=== PATIENT | male | born 1995 | race Caucasian/White ===

== ENCOUNTER 2019-02-18 16:44 | Emergency (ER) | payer BC, MEDICAID, SELFPAY ==
[2019-02-18 16:48] VITALS: BP 146/101; PULSE 98; RESP 18; TEMP 36.6; O2SAT 98; BMI 19.5
--- NOTE | 2019-02-18 17:01 | EKG12_ITS ---
Test Reason : CP Blood Pressure : / mmHG Vent. Rate : 085 BPM Atrial Rate : 085 BPM P-R Int : 134 ms QRS Dur : 088 ms QT Int : 348 ms P-R-T Axes : 003 008 026 degrees QTc Int : 414 ms Normal sinus rhythm Normal ECG Confirmed by ELMER GRANT ([id number]), non linear editor MADELEINE BOURNE ([id number]) on 02/20/2019 1:47:26 PM Referred By: NOAM Confirmed By:ELMER GRANT
--- NOTE | 2019-02-18 17:07 | NURSING ---
NO OLD EKGS
--- NOTE | 2019-02-18 17:13 | ED.DCSUM_ITS ---
- ER Visit Summary Date of Service: 02/18/19 Chief Complaint: Fevers, chills History of Present Illness: The patient is a 23 M presents to the emergency department from urgent care due to concern for Lyme disease. Patient states he was bit by a tick on the . He states that about 9 days ago, he began to have some vague infectious symptoms. He states had a mild cough and mild sore throat. He also been having some generalized malaise and night sweats. Went to urgent care today. Due to this concern he was sent in for further evaluation. He has no history of immunosuppression. He is not on daily medication. Physical Examination: Vital signs reviewed General: Well-nourished, well-developed Head: Normocephalic, atraumatic Eyes: Pupils equal and reactive, extraocular muscles intact Neck, supple, no lymphadenopathy Heart: Regular rate and rhythm Respiratory: No distress, clear bilaterally Abdomen: Soft, nontender, nondistended, no peritoneal signs Back: Nontender Extremities: Nontender, no edema, no cords Skin: Normal color no rash Neuro: Alert and oriented, no focal or lateralizing deficits Test Results: [] Emergency Department Course and Treatment: The patient has no erythema migrans. He has had some vague infectious type symptoms. Metabolic work-up was pursued. EKG was obtained. There is no evidence of cardiac dysrhythmia or AV dissociation her chest x-ray was unremarkable. Labs were unremarkable. The Lyme disease is a send off, and given his symptoms, I am going to treat him at least until this is negative. He does have follow-up with regular primary care. The patient will be started on doxycycline. Again, he does not appear to be systemically ill, has an unremarkable work-up, and normal vital signs. I do feel that he is safe for outpatient therapy. Treatment Plan: [] Disposition: Discharge Impression: 1. Suspected exposure to Lyme disease This note was generated with [employer]ing[employer] dictation software. It may contain incorrect words, spelling, and punctuation that were not noted in review of the chart prior to signing ED Disposition - Plan for ED Patient: Instructions: ED Bite Tick Abx Tx Prescriptions: Doxycycline 100 mg PO BID #42 cap Referrals: De Carroll MD [Primary Care Provider] -
[2019-02-18] MEDS: 0.9% Normal Saline 1,000 ML 1000 ML IV (17:40)
--- NOTE | 2019-02-18 17:43 | RAD_ITS ---
STUDY: X-RAY CHEST REASON FOR EXAM: Male, 23 years old. Cough and fever TECHNIQUE: PA and lateral views of the chest. COMPARISON: None. FINDINGS: quality assurance monitor chassis leads are present. The lungs are clear and expanded. There is no demonstrated pleural abnormality. Normal size heart. Normal mediastinum and janice. Normal visualized pulmonary arteries. Normal visualized aortic arch and descending thoracic aorta. Normal visualized thoracic spine. Normal visualized ribs, clavicles, and shoulders. There is no demonstrated abnormality of the visualized soft tissue structures of the upper abdomen. RAD/Chest PA and Lateral IMPRESSION: Normal x-ray examination of the chest. Electronically Signed: Lalo Crooks MD at 18:20 EDT , Service support ,
[2019-02-18 17:47] LABS: Lyme Ab Screen Interpretation REF LAB
[2019-02-18 17:49] LABS: Absolute Neutrophil Count 4.8 X10^3/uL (2.0-7.7); Basophil# 0.04 X10^3/uL; Basophil% 0.6 % (0-1); Eosinophil# 0.26 X10^3/uL; Eosinophils% 3.6 % (0-5); Hematocrit 47.6 % (40-54); Lymphocyte % 19.5 % (19-41); Mean Corp Hgb Conc 35.7 g/gl (32-36); Mean Corpuscular Hgb 31.4 pg (27.0-32.0); Mean Corpuscular Volume 87.8 fL (80-94); Mean Platelet Vol. 10.5 fl (6.2-12.0); Monocyte# 0.66 X10^3/uL; Monocyte% 9.2 % (0-10); Neutrophil # 4.81 X10^3/uL (2.7-7.7); Neutrophil % 66.8 % (47-70); Platelet Count 191 K/mm3 (150-450); RBC Distribution Width CV 12.7 % (11.6-14.6); RBC Distribution Width SD 40.3 fl (35.1-43.9); Red Blood Count 5.42 M/mm3 (4.6-6.2); White Blood Count 7.2 K/mm3 (4.4-11.0)
[2019-02-18 17:50] LABS: POSITIVE COUNT NO; POSITIVE DIFFERENTIAL NO; POSITIVE MORPHOLOGY NO
[2019-02-18 18:05] LABS: ALB/GLOB Ratio 1.2 RATIO (0.9-2.4); AST(SGOT) 44 U/L (15-37); Alanine Aminotransfer ALT/SGPT 69 U/L (16-61); Albumin, Serum 4.1 g/dL (3.2-5.0); Alkaline Phosphatase 81 U/L (45-117); Anion Gap 6 (5-15); BUN 11 mg/dL (7-18); BUN/Creat Ratio 10.9 RATIO (10-20); Calcium,Total 8.8 mg/dL (8.5-10.1); Chloride 101 mmol/L (98-107); Creatinine, Serum 1.01 mg/dL (0.70-1.30); EST Glomerular Filtration Rate 95 mL/min (>60); Est Glom Filt Rate - Afr Amer 115 mL/min (>60); Estimated Creatinine Clearance 118.36 ml/min; Globulin 3.5 g/dL (2.2-4.2); Glucose 109 mg/dL (74-106); Potassium 3.6 mmol/L (3.5-5.1); Protein, Total 7.6 g/dL (6.4-8.2); Sodium Level 138 mmol/L (136-145)
[2019-02-18] MEDS: Doxycycline 100 MG CAPSULE PO (18:26)
[2019-02-18] MEDS: Ibuprofen 600 MG Tablet PO (18:26)
[2019-02-18 18:28] VITALS: BP 158/98; PULSE 95; RESP 18; TEMP 36.6; O2SAT 99
[2019-02-22 13:32] LABS: Lyme Scn Total Ab w/Rflx <0.91 ISR (0.00-0.90)
== END 2019-02-18 18:35 | disposition home or self-care (01) ==
PROVIDERS: Emergency Provider Emergency Medicine; Family Provider Family Medicine; PCP Family Medicine
DX: T14.8XXA Other injury of unspecified body region, initial encounter (principal); Z20.828 Contact with and (suspected) exposure to other viral communicable diseases; W57.XXXA Bitten or stung by nonvenomous insect and other nonvenomous arthropods, initial encounter; Y93.9 Activity, unspecified; Y92.9 Unspecified place or not applicable; R50.9 Fever, unspecified; R05 Cough; J02.9 Acute pharyngitis, unspecified; R53.81 Other malaise; R61 Generalized hyperhidrosis
CPT/HCPCS: 71046; 80053; 85025; 86618; 93005; 96360; 99285; J7030; A4216

== ENCOUNTER → 2019-06-27 | Outpatient (CLI) | payer BC, MEDICAID, SELFPAY ==
[2019-06-27 18:02] LABS: Anion Gap 5 (5-15); BUN 8 mg/dL (7-18); BUN/Creat Ratio 7.5 RATIO (10-20); Calcium,Total 9.5 mg/dL (8.5-10.1); Chloride 101 mmol/L (98-107); Cholesterol 186 mg/dL (200); Creatinine, Serum 1.07 mg/dL (0.70-1.30); EST Glomerular Filtration Rate 89 mL/min (>60); Est Glom Filt Rate - Afr Amer 107 mL/min (>60); Glucose 129 mg/dL (74-106); High Density Lipoprotein 52 mg/dL; Sodium Level 136 mmol/L (136-145); Triglycerides 240 mg/dL; Very Low Density Lipoprotein 48 mg/dL (5-40)
== END | disposition home or self-care (01) ==
LOC: MFPLAB 16:40
PROVIDERS: Family Provider Family Medicine; PCP Family Medicine; Referring Provider Family Medicine; Visit Provider Family Medicine
DX: R03.0 Elevated blood-pressure reading, without diagnosis of hypertension (principal)
CPT/HCPCS: 36415; 80048; 80061

== ENCOUNTER → 2019-07-05 | Outpatient (CLI) | payer BC, MEDICAID, SELFPAY ==
[2019-07-05 14:32] VITALS: BMI 30.6
[2019-07-05 17:45] LABS: Free T3 2.2 pg/mL (2.18-3.98); T4 Total, Thyroxin 7.9 ug/dL (4.5-12.1); Thyroid Stim Hormone (TSH) 0.77 uIU/mL (0.358-3.74)
== END | disposition home or self-care (01) ==
PROVIDERS: Family Provider Family Medicine; PCP Family Medicine; Referring Provider Specialist; Visit Provider Specialist
DX: R00.0 Tachycardia, unspecified (principal)
CPT/HCPCS: 36415; 84436; 84443; 84481

== ENCOUNTER → 2019-07-18 | Outpatient (CLI) | payer BC, MEDICAID, SELFPAY ==
[2019-07-05 14:32] VITALS: BMI 30.6
--- NOTE | 2019-07-18 13:02 | ECHOCS_ITS ---
Reason For Study: CP, SOB, Palpitations Procedure This was a 2D Doppler, Color Flow transthoracic echocardiogram. The study was technically difficult. Contrast injection was performed. Exam performed in department. Left Ventricle Normal size and thickness. The estimated ejection fraction is 60 %. No evidence for diastolic dysfunction. No regional wall motion abnormalities noted. Right Ventricle Normal RV size. Normal systolic function. Atria Normal left atrium. Normal right atrium. No doppler evidence for ASD. Mitral Valve There is no mitral valve stenosis. No mitral valve insufficiency. Tricuspid Valve There is no tricuspid stenosis. Unable to estimate RV systolic pressure due to inadequate jet, pulmonary artery pressure probably normal. Aortic Valve Trisinus/trileaflet aortic valve. There is no aortic stenosis. No aortic valve insufficiency. Pulmonic Valve There is no pulmonic valvular stenosis. No pulmonic valve insufficiency. Great Vessels Normal aortic root. Pericardium/Pleural No pericardial effusion. Medication 22 gauge I.V. with prn adaptor inserted into right arm. Diluted definity 2ml given slow IV push to enhance endocardial definition. MMode/2D Measurements & Calculations LVIDd: 4.4 cm IVSd: 1.1 cm Ao root diam: 3.4 cm LVIDs: 2.5 cm LVPWd: 1.0 cm LA dimension: 3.2 cm FS: 43.3 % LAV(MOD-bp): 39.6 ml LA A4 area: 14.7 cm2 LAV(MOD-bp) Indexed: 15.6 ml/m2 LAV(MOD-sp2): 44.4 ml LAV(MOD-sp4): 30.6 ml Time Measurements MV dec time: 0.18 sec Doppler Measurements & Calculations MV E max raji: 92.4 cm/sec Lat Peak E' Raji: 16.4 cm/sec Med Peak E' Raji: 7.9 cm/sec MV A max raji: 67.0 cm/sec E/E' lat: 5.6 E/E' med: 11.6 MV E/A: 1.4 MV V2 max: 92.5 cm/sec MV P1/2t max raji: 89.6 cm/sec Ao V2 max: 120.4 cm/sec MV max P.4 mmHg MV P1/2t: 73.8 msec Ao max P.8 mmHg MV V2 mean: 58.2 cm/sec MV dec slope: 355.5 cm/sec2 MV mean P.5 mmHg MV V2 VTI: 21.6 cm MVA(P1/2t): 3.0 cm2 LV V1 max: 98.1 cm/sec PA V2 max: 105.0 cm/sec LV V1 max P.8 mmHg Interpretation Summary The study was technically difficult. Diluted definity 2ml given slow IV push to enhance endocardial definition. The estimated ejection fraction is 60 %. No evidence for diastolic dysfunction. The study was technically difficult. Ordering Physician: Lisandra Tadeo Referring Physician: De Carroll Performed By: Jermain Bruce RCS
== END | disposition home or self-care (01) ==
LOC: CVS 13:01
PROVIDERS: Family Provider Family Medicine; PCP Family Medicine; Referring Provider Specialist; Visit Provider Specialist
DX: R07.9 Chest pain, unspecified (principal); R06.02 Shortness of breath; R00.2 Palpitations
CPT/HCPCS: 93225; 93226; 93306; Q9957; A4216; C8929

== ENCOUNTER 2019-09-06 17:00 | Outpatient (RCR) | payer BC, MEDICAID, SELFPAY ==
--- NOTE | 2019-05-18 11:13 | HP.PTEVAL_ITS ---
Patient's Visit Information AURELIANO KOTHARI is a 24 year old M referred to Physical Therapy by Randy Mata with a diagnosis of R trimalleolar fracture with ORIF. Date of Evaluation: 05/18/19 Physical Therapist: Seamus Parsons DPT - Visit Plan Frequency: 2-3x /Week Duration: 4-6 Weeks Plan: Start with AROM, gental stretching, STM/desensitization/edema control. Add in gentla band exercises and mobility exercises as tolerated. - Subjective Findings: Pt. is here today for his initial evaluation with diagnosis of R trimalleolar fracture. Pt. had ORIF with 12 screws, 2 plates implanted. DOS: March 27. Fracture on march 24. Pt. reports dancing at wedding and slipping on ice. Pt. works in a mill: standing, lifting. Return to work in 05/22/19, but is going be doing most desk work. Pt. has been doing ankle circles and pumps and at home. Pt. is taking gabapentin for pain control, but reports he is still having a lot of pain. Pt. denies N/T now, but did have some previously. Pt. is sleeping without pain, He is to remain in his CAM boot and is PWB currently. Pt. is hopeful to get back to all recreational and work activities without limitations. - Pain R medial/lateral ankle Pain Intensity (Out of 10): 3 Pain Intensity Range: 1, 6 - Objective POSTURE: Pt. stands with crutches, wears boot PWBing on RLE. Pt. maintains stability with crutches consistently. PALPATION: Pt. is tender along medial and lateral mallelus, well healing incisions. He has previous incision at navicular/cuneiforms- previous foot reconstruction (per patient). No signs of infection, mild swelling, non pitting. Pt. does have increased scarring adherance at lateral ankle incision. NEURO: Normal throughout. ROM: AROM: DF 1deg, PF 48deg, INV- 6deg, EVR 4deg. PROM- DF 5deg, PF 52deg, INV- 10, EVR 8deg. Pt. reports pain at end ranges of motions. Normal knee ROM bilatera, but does have very tight R HS. MMT: PF- 4/5, DF 4/5, INV 4-/5, EVR 4-/5. Pt had soreness with INV/EVR testing. GAIT: Pt. tends to ambulate with NWBing on RLE with cructes, but with instruction is able to complete with partial WBing with good mechanics. Pt reports no increase in symptoms with walking, but tends to be NWB for convience. STAIRS: PT. is pawan to complete with step to pattern with use of crutces. - Goals Goal 1:: Pt. to be I with HEP. Goal Time Frame: 6-8 Weeks Goal 2:: Pt. to have increased R ankle ROM symmetrical to L without increase in symptoms allowing for proper gait mechanics. Goal Time Frame: 6-8 Weeks Goal 3:: Pt. to have increased R ankle strength to atleast 5-/5 allowing for increased functional mobility and ankle stability. Goal Time Frame: 6-8 Weeks Goal 4:: Pt. to demonstrate good gait mechanics while maintaining PWB on RLE with use of crutches. Goal Time Frame: 6-8 Weeks Goal 5:: Pt. to have no pain at rest. Goal Time Frame: 6-8 Weeks - Rehabilitation Potential Physical Therapy Diagnosis: Pt. has signs and symptoms consistent with R trimalleolar fracture with ORIF with subsequent hypombility, weakness, increased edema and difficulty with gait. Rehabilitation Potential: Excellent - Anticipated Interventions Patient/Client Instruction: Educate patient on: Condition, Plan of Care, Risk Factors, Benefits of Fitness Program For the Purpose of:: To facilitate caregiver knowledge, To improve self cehvy gement, To prevent re-injury, To improve ability to perform tasks related to life management, To improve tolerance to ADL's Therapeutic Exercise to Include: Strength training, Power training, Body mechanics, Postural training, Flexibilty training, Gait and locomotor training, Passive ROM, Active ROM For the Purpose of:: To decrease pain, To decrease swelling/inflammation, To increase ROM, To improve nutrient delivery to tissue, To improve ability to perform ADL's, To improve gait and locomotor functions, To improve health of tissue, To decrease soft tissue restriction, To increase flexibility/ROM, To improve endurance IF ES: Yes Other electric stimulation: Yes Cryotherapy (ice pack, ice massage): Yes Vasopneumatic device: Yes For the Purpose of:: To decrease pain, To decrease swelling/inflammation, To increase ROM Thank you for the opportunity to evaluate your patient. For Medicare and Medicare HMO plans, please review the plan of care and approve it. It will need to be FAXED BACK to us at [phone] for Medicare purposes. For Medicare only, by signing this I certify the plan of care. Please let me know if there are questions or concerns regarding this plan of care. Physician Signature: Date:
== END 2019-09-06 19:00 | disposition home or self-care (01) ==
LOC: PT 17:00
PROVIDERS: Family Provider Family Medicine; PCP Family Medicine; Visit Provider Orthopaedic Surgery
DX: S82.851D Displaced trimalleolar fracture of right lower leg, subsequent encounter for closed fracture with routine healing (principal)
CPT/HCPCS: 97016; 97110; 97140; 97161

== ENCOUNTER → 2020-03-06 14:26 | Outpatient (CLI) | payer BC, SELFPAY ==
[2019-12-13 08:52] VITALS: BMI 32.0
--- NOTE | 2020-03-06 14:31 | US_ITS ---
STUDY: ABDOMINAL ULTRASOUND - RIGHT UPPER QUADRANT REASON FOR VISIT: Male, 24 years old LUQ PAIN- ATTENTION SPLEEN TECHNIQUE: Ultrasound evaluation of the right upper quadrant was performed with real-time and static hartman-scale imaging. TECHNICAL QUALITY: Adequate. COMPARISON: None. FINDINGS: Spleen: 14.2 cm. Parenchyma is homogeneous and unremarkable No other focal abnormalities identified within the left upper quadrant. US/Spleen IMPRESSION: Unremarkable left upper quadrant ultrasound examination. Electronically Signed: Gonzalo Madden, at 16:00 EDT Tel , Service support ,
== END ==
PROVIDERS: PCP Family Medicine; Visit Provider Family Medicine
DX: R10.9 Unspecified abdominal pain (principal)
CPT/HCPCS: 76705

== ENCOUNTER 2020-03-13 14:33 | Emergency (ER) | payer BC, SELFPAY ==
[2019-12-13 08:52] VITALS: BMI 32.0
[2020-03-13 14:34] VITALS: BP 147/97; PULSE 78; RESP 17; TEMP 36.6; O2SAT 99; BMI 30.8
--- NOTE | 2020-03-13 15:16 | ED.DCSUM_ITS ---
History of Present Illness Chief Complaint: Abd Pain Informant: Patient - Abdominal Pain/Flank Pain Onset: Weeks - 2-3 Context: Gradual Onset Timing: Continuous Quality: Aching Location: LUQ Current Severity: Moderate Maximum Severity: Moderate Worsened by: Nothing. Not Worsened By: Food, Movement Relieved by: Antacids. Not Relieved By: Food - Nausea/Vomiting/Emesis GI Symptom: Nausea, Vomiting Quality: Nonbilious. Negative for: Blood streaks, Coffee ground, Hematemesis Severity: Mild - Off and on, especially when the pain worsens - Diarrhea/Melena/Hematochezia GI Symptom: Negative for: Diarrhea, Melena, Hematochezia Associated Symptoms: Negative for: Dysuria, Frequency, Hematuria, Urgency Narrative: Patient has been having worsening pain. He states it does not get worse or better when he eats or drinks anything. Has been eating a lot of oatmeal and trying to watch his diet, no spicy foods. Saw his doctor about a week or so ago for this, had an ultrasound of his spleen which was unremarkable. Has been continuing to take an acids which temporarily helped but overall the discomfort is worsening. No radiation into the back or chest, but he does have a cough and dyspnea with exertion. That is new for him as well. - Past Medical History (1) Essential hypertension Status: Chronic Past Medical History - Allergies and Home Meds Allergies/Adverse Reactions: Allergies Iodinated Contrast Media [Iodinated Contrast- Oral and IV Dye] Allergy (Verified 03/13/20 14:33) Rash morphine Allergy (Verified 03/13/20 14:33) Itching Primary Care Physician: De Carroll MD [Primary Care Provider] - Smoking Status: Never smoker Review of Systems General: Denies: Chills, Fever, Sweats Eyes: Denies: Visual changes - bilaterally, Diplopia ENT: Denies: Bilateral ear pain, Rhinorrhea, Sore throat Cardiovascular: Denies: Chest pain, Palpitations Respiratory: Reports: Cough, Dyspnea on exertion. Denies: Sputum Gastrointestinal: Reports: Abdominal pain, Nausea, Vomiting. Denies: Diarrhea, Melena, Hematochezia Genitourinary: Denies: Dysuria, Hematuria, Frequency Musculoskeletal: Denies: Neck pain, Back pain, Swelling, Extremity Pain Skin: Denies: Rash, Wounds Neurological: Denies: Headache, Weakness, Numbness Physical Exam Vital Signs/Narrative: Vital Signs Temp Pulse Resp BP Pulse Ox 03/13/20 14:34 97.8 F 78 17 147/97 H 99 Inital Vital Signs reviewed: Yes General: Well nourished, Well developed, No Acute Distress Head: Normocephalic, Atraumatic Eyes: Perrl, EOMI ENT: Moist mucous membranes, No rhinorrhea Neck: Supple, Nontender, No lymphadenopathy Cardiovascular: Regular rate, Regular rhythm, No murmurs. Negative for: Tachycardia Respiratory: No distress, CTA bilaterally, Chest nontender Abdomen: Soft, Nondistended, Normal bowel sounds, No masses, Tender - Left upper quadrant only, mild. Negative for: Guarding, Rebound tenderness Back: Nontender, Normal Inspection. Negative for: CVA tenderness Extremities: Nontender, No edema. Negative for: Calf Tenderness Skin: Normal color, No rash, No Trauma Neurological: Alert, Oriented x3, Cranial nerves II-XII grossly intact, Normal Strength, Normal Sensation, Normal Gait Psychological: Normal affect, Normal Mood Diagnostic/Tx/Re-eval Impressions Chest X-Ray 03/13/20 16:00 IMPRESSION: No acute cardiopulmonary findings Electronically Signed: Gonzalo Madden, at 16:31 EDT Tel , Service support , 03/13/20 16:00 CXR [Chest PA and Lateral] [RAD] Stat Laboratory Results 03/13/20 03/13/20 03/13/20 15:00 15:00 15:35 WBC 8.5 RBC 5.41 Hgb 16.4 Hct 48.1 MCV 88.9 MCH 30.3 MCHC 34.1 RDW Std Deviation 39.8 RDW Coeff of Reena 12.2 Plt Count 218 MPV 10.4 Immature Gran % (Auto) 0.600 Neut % (Auto) 78.8 H Lymph % (Auto) 10.7 L [place] % (Auto) 9.2 Eos % (Auto) 0.2 Baso % (Auto) 0.5 Absolute Neuts (auto) 6.7 Absolute Lymphs (auto) 0.91 Nucleated RBC % 0 Sodium 138 Potassium 3.6 Chloride 100 Carbon Dioxide 29.0 Anion Gap 9 BUN 10 Creatinine 1.10 Estim Creat Clear Calc 127.13 Est GFR (MDRD) Af Amer 103 Est GFR (MDRD) Non-Af 85 BUN/Creatinine Ratio 9.1 L Glucose 93 Calcium 9.6 Total Bilirubin 0.50 AST 57 H ALT 110 H Alkaline Phosphatase 84 Total Protein 7.7 Albumin 4.1 Globulin 3.6 Albumin/Globulin Ratio 1.1 Lipase 98 Urine Color Straw Urine Clarity Clear Urine pH 7.0 Ur Specific [place] 1.005 Urine Protein Negative Urine Glucose (UA) Normal Urine Ketones Negative Urine Occult Blood Negative Urine Nitrite Negative Urine Bilirubin Negative Urine Urobilinogen Normal Ur Leukocyte Esterase Negative Urine RBC 0 SEEN Urine WBC 0 SEEN Ur Squamous Epith Cells 0-5 SEEN Urine Bacteria 0 SEEN Urine Mucus 0 SEEN - Medical Decision Making Labs are reassuringly normal. Chest x-ray shows no evidence of infiltrate or pneumonia around the diaphragm. He did feel better with a GI cocktail. He was given an initial pantoprazole and a prescription for it advised to follow-up with his doctor for possible gastritis. He is comfortable with this and will follow-up. ED Disposition - Plan for ED Patient: Disposition: Home or Assisted Living Diagnosis: Left upper quadrant abdominal pain Instructions: ED PEPTIC ULCER vs GASTRITIS Prescriptions: Pantoprazole Sodium 40 mg PO DAILY #30 tablet. Transmission Status: Pending to [id number] Referrals: De Carroll MD [Primary Care Provider] - 1 Week if not improving
[2020-03-13] MEDS: Ondansetron 4 MG/2 ML Vial IV (15:25)
[2020-03-13] MEDS: Pantoprazole Sodium 40 MG Tablet PO (15:26)
[2020-03-13] MEDS: Mag Hydrox/Al Hydrox/Simeth 30 ML UDC PO (15:26)
[2020-03-13 15:42] LABS: Bacteria 0 SEEN /hpf (None Seen); Mucous, Urine 0 SEEN /hpf (<or=2+); Red Blood Cells-Urine 0 SEEN /hpf (0-5); White Blood Cells 0 SEEN /hpf (0-5)
[2020-03-13 15:45] LABS: Absolute Lymphocyte Count 0.91 X10^3/uL (0.83-4.51); Absolute Neutrophil Count 6.7 X10^3/uL (2.0-7.7); Basophil# 0.04 X10^3/uL; Basophil% 0.5 % (0-1); Eosinophil# 0.02 X10^3/uL; Eosinophils% 0.2 % (0-5); Hematocrit 48.1 % (40-54); Hemoglobin 16.4 g/dL (13.0-16.5); Lymphocyte # 0.91 X10^3/ul (4.0); Lymphocyte % 10.7 % (19-41); Mean Corp Hgb Conc 34.1 g/dL (32-36); Mean Corpuscular Hgb 30.3 pg (27.0-32.0); Mean Corpuscular Volume 88.9 fL (80-94); Mean Platelet Vol. 10.4 fl (6.2-12.0); Monocyte# 0.78 X10^3/uL; Monocyte% 9.2 % (0-10); NRBC Flagged by Analyzer 0 % (0-5); Neutrophil # 6.67 X10^3/uL (2.7-7.7); Neutrophil % 78.8 % (47-70); Platelet Count 218 K/mm3 (150-450); RBC Distribution Width CV 12.2 % (11.6-14.6); RBC Distribution Width SD 39.8 fl (35.1-43.9); Red Blood Count 5.41 M/mm3 (4.6-6.2); White Blood Count 8.5 K/mm3 (4.4-11.0)
[2020-03-13 15:56] LABS: ALB/GLOB Ratio 1.1 RATIO (0.9-2.4); AST(SGOT) 57 U/L (15-37); Alanine Aminotransfer ALT/SGPT 110 U/L (16-61); Albumin, Serum 4.1 g/dL (3.2-5.0); Alkaline Phosphatase 84 U/L (45-117); Anion Gap 9 (5-15); BUN 10 mg/dL (7-18); BUN/Creat Ratio 9.1 RATIO (10-20); Calcium,Total 9.6 mg/dL (8.5-10.1); Chloride 100 mmol/L (98-107); EST Glomerular Filtration Rate 85 mL/min (>60); Est Glom Filt Rate - Afr Amer 103 mL/min (>60); Estimated Creatinine Clearance 127.13 ml/min; Globulin 3.6 g/dL (2.2-4.2); Glucose 93 mg/dL (74-106); Lipase 98 U/L (73-393); Potassium 3.6 mmol/L (3.5-5.1); Protein, Total 7.7 g/dL (6.4-8.2); Sodium Level 138 mmol/L (136-145)
--- NOTE | 2020-03-13 16:00 | RAD_ITS ---
STUDY: X-RAY CHEST REASON FOR EXAM: Male, 25 years old. Pain. Shortness of breath. TECHNIQUE: PA and lateral views of the chest. COMPARISON: 02/18/2019. FINDINGS: Left axillary surgical clips. Cardiac silhouette unremarkable. Pulmonary vascularity unremarkable. Aorta unremarkable. No focal airspace opacities. No pleural effusions. Upper abdomen unremarkable. Osseous structures intact. No pneumothorax. RAD/Chest PA and Lateral IMPRESSION: No acute cardiopulmonary findings Electronically Signed: Gonzalo Madden, at 16:31 EDT Tel , Service support ,
[2020-03-13 16:01] LABS: Color, Urine Straw (Yellow); Glucose, Dipstick Normal (Normal); Ketone-Dipstick Negative (Negative); Leukocyte Esterase-Dipstick Negative /ul (Negative); Nitrite-Dipstick Negative (Negative); Occult Blood-Urine Negative /ul (Negative); Protein-Dipstick Negative (Negative); Specific Gravity, Urine 1.005 (1.002-1.030); Urine Bilirubin Dipstick Negative (Negative); Urine Clarity Clear (Clear); Urine Urobilinogen Normal (Normal)
[2020-03-13 16:28] LABS: Squamous Epithelial Cells - UA 0-5 SEEN /hpf (0-5)
[2020-03-13 17:15] VITALS: BP 165/111; PULSE 79; RESP 18; O2SAT 97
== END 2020-03-13 17:17 | disposition home or self-care (01) ==
PROVIDERS: Emergency Provider Emergency Medicine; PCP Family Medicine
DX: R10.12 Left upper quadrant pain (principal); I10 Essential (primary) hypertension
CPT/HCPCS: 71046; 80053; 81001; 83690; 85025; 96374; 99285; A4216; J2405

== ENCOUNTER 2021-10-22 16:17 | Emergency (ER) | payer MEDICAID, SELFPAY ==
[2021-10-22 16:18] VITALS: BP 171/125; PULSE 90; RESP 18; TEMP 36.3; O2SAT 100; BMI 31.0
[2021-10-22 17:03] LABS: Absolute Lymphocyte Count 1.04 X10^3/uL (0.83-4.51); Basophil# 0.05 X10^3/uL; Basophil% 0.8 % (0-1); Eosinophil# 0.07 X10^3/uL; Eosinophils% 1.2 % (0-5); Hematocrit 51.6 % (40-54); Hemoglobin 17.3 g/dL (13.0-16.5); Lymphocyte # 1.04 X10^3/ul (0.83-4.51); Lymphocyte % 17.5 % (19-41); Mean Corp Hgb Conc 33.5 g/dL (32-36); Mean Corpuscular Hgb 31.8 pg (27.0-32.0); Mean Corpuscular Volume 94.9 fL (80-94); Mean Platelet Vol. 11.1 fl (6.2-12.0); Monocyte# 0.73 X10^3/uL; Monocyte% 12.3 % (0-10); NRBC Flagged by Analyzer 0 % (0-5); Neutrophil # 4.03 X10^3/uL (2.7-7.7); Neutrophil % 67.9 % (47-70); Platelet Count 197 K/mm3 (150-450); RBC Distribution Width CV 12.3 % (11.6-14.6); RBC Distribution Width SD 42.8 fl (35.1-43.9); Red Blood Count 5.44 M/mm3 (4.6-6.2); White Blood Count 5.9 K/mm3 (4.4-11.0)
--- NOTE | 2021-10-22 17:15 | CM.ED ---
SOCIAL WORK ASSESSMENT Referral Source: Dr. Urbano Reason for Consult: Mental Health Evaluation Chief Compliant: Patient arrives to ER by brother from [facility]. Prior to patient?s arrival received phone call from Alexandre with [facility] recommending inpatient psych for placement for stabilization. Marital/Social History: Single Living Situation: Home with mother Support/Resources: Family and friends History: None Employment History: [employer], working on [employer] licensure Mental Health Treatment/History: Bipolar disorder with linda. Patient states was treated with medication in the past and was hospitalized at [address] in 2020. Triggers/Stressors: health issues over last 3 years including surgeries Coping Skills: working out and [employer] Abuse Issues: Patient denies any history of emotional, physical, or sexual abuse. Substance Abuse History: Patient admits to smoking marijuana. Patient reports history of ?some alcohol, but not anymore.? Risk to Self/Others: Suicidal- Patient denies any suicidal ideation, plan, or intent. Homicidal- Patient denies any homicidal ideation. Violence- none reported Mental Status Exam: Orientation- A&Ox3 Memory: good Appearance/General Behavior: clean/appropriate, calm Mood/Affect: anxious Communication Pattern: responds to questions Thought Process: paranoid General Intellectual Functioning: Average Judgement: fair Insight: fair Assessment: Met with patient in room. Introduced role and reason for referral. Patient wishes to speak openly with brother present. Patient states, ?I always want to be with my brother.? Brother reports patient has been manic and not sleeping. Patient with paranoid thoughts and believes ?someone is out to get me.? Patient states ?someone got into my [employer] account to see how much I was making.? Patient states ?put money in different accounts.? It was reported by Alexandre from [facility] that while patient in intake appointment was looking out window believing someone was ?watching.? Alexandre states office is on 2nd story. Patient and patient?s brother believe patient would benefit from hospitalization for stabilization and is voluntary. Patient to have medical clearance for voluntary placement. Patient requesting referral to Tasia Patten. Dr. Urbano in agreement with plan and does not believe patient requires [place] at this time. This worker to assist in facilitating placement. Plan: Referral to inpatient psych Gloria Yu MSW, [employer]
--- NOTE | 2021-10-22 17:17 | EX.ED.VIS.PS ---
HPI HPI - Psych History of Present Illness Chief Complaint: Mental Health Narrative Narrative: Patient presents from [facility] with his brother for transfer to psychiatric facility. His history and physical is mildly limited secondary to psychiatric disorder. His brother states that he has past medical history of bipolar disorder with psychosis. He was admitted last year around this time to a psychiatric facility. Over the last week, patient has become increasingly paranoid. He thinks that everyone is watching him and after him. He states that they want to steal from him. Patient also states that this started happening last week when someone broke into his door?count reportedly. They found out how much money he can make. Now he feels that everyone is out to get him. He also states that he worked on a campaign to legal eyes recreational marijuana. Although he states that he smokes marijuana, his brother states that he has not recently and that this increasing psychosis and paranoia is new. He has been at [facility] recently and had a bad experience there. His brother states that they are here to be transferred to a different facility to be stabilized. Patient and his brother report decreased appetite, and insomnia. His brother feels that he is manic again. [facility] Medical History (Updated 10/22/21 @ 23:01 by Sukhi Urbano MD) Alcohol abuse Essential hypertension History of malignant melanoma Home Medications multivitamin 1 tab PO DAILY 07/05/19 [History Last Taken Unknown] amlodipine 2.5 mg tablet 2.5 mg PO DAILY #30 tab 10/18/19 [Rx Last Taken Unknown] fluoxetine 20 mg PO DAILY 03/13/20 [History Last Taken Unknown] pantoprazole 40 mg PO DAILY #30 tablet. 03/13/20 [Rx Last Taken Unknown] hydroxyzine pamoate [Vistaril] 25 mg PO TID PRN #20 cap 10/22/21 [Rx Last Taken Unknown] Allergy/AdvReac Type Severity Reaction Status Date / Time Iodinated Contrast Media Allergy Rash Verified 10/22/21 16:22 [Iodinated Contrast- Oral and IV Dye] morphine Allergy Itching Verified 10/22/21 16:22 Family History Father , Age 55 Myocardial infarction Surgical History History of ankle surgery History of melanoma excision (~06/2019) History of open reduction and internal fixation (ORIF) procedure (~03/27/19) Social History Smoking Status: Never smoker alcohol intake: current Alcohol type: hard liquor details: 1 pint of gin per day trying to decrease amount substance use type: does not use caffeine: Yes (occasionally) ROS ROS ED ROS Narrative Constitutional: No fever, no chills. HEENT: No sore throat. No neck pain. No loss of vision. No rhinorrhea. Cardiovascular: No chest pain. No palpitations. No pedal edema. Respiratory: No cough, no shortness of breath. Abdominal: No abdominal pain. No nausea. No vomiting. Genitourinary: No dysuria. No hematuria. Musculoskeletal: No myalgias. No arthralgias. Neurologic: No headaches. No dizziness. No lightheadedness. Skin: No rash. No change in color. Psychiatric: No depression. Positive anxiety. Paranoia and psychosis. Insomnia. Linda. Decreased appetite. Review of systems mildly limited secondary to his bipolar disorder. Review of Systems ROS Unobtainable: due to mental condition EXAM Physical Exam Narrative Exam Narrative: Afebrile. Vital signs noted. HEENT: Normocephalic. Atraumatic. PERRL, EOMI. Neck soft and supple. No point tenderness or step off. Cardiovascular: Regular rate and rhythm. No murmurs, rubs, or gallops appreciated. Respiratory: No tachypnea. Lungs clear to auscultation bilaterally. Gastrointestinal: Abdomen soft, nontender, with normoactive bowel sounds. No rebound or guarding. Neurological: Awake. Alert. Nonfocal, nonlateralizing. Skin: No rash. Normal color. No pallor. Musculoskeletal: No pedal edema. Full range of motion extremities. Psychiatric: Positive paranoia/psychosis. No noted suicidal ideation. Const Vital Signs: 10/22/21 16:18 10/22/21 19:09 10/22/21 21:00 Temperature 97.3 F L 98.6 F Temperature Source Temporal Temporal Pulse Rate 90 88 67 Respiratory Rate 18 14 14 Blood Pressure 171/125 H 138/60 H 128/72 H Blood Pressure Mean 140 86 90 Pulse Ox 100 97 97 Oxygen Delivery Method Room Air Room Air Room Air MDM MDM MDM Narrative Medical decision making narrative: Medical screening labs were obtained. CBC is grossly normal except hemoglobin of 17.3. Electrolyte panel is grossly unremarkable except for glucose appropriately elevated at 132 with a normal anion gap of 9. Ethyl alcohol level is less than 3.0. His urine drug screen is positive for THC which she admits to using. His initial COVID swab is positive. PCR was sent for confirmation. At this point in time, he is voluntary and would like to be transferred to the facility in [place]. There was reported by RN that patient's family does not want him to go to another facility that would take COVID patients. Should he have a positive PCR, his mother would prefer to take him home and follow-up once he is over his COVID so that he could be admitted to the [place] facility. Patient did become mildly anxious and was administered Ativan 1 mg orally. Patient is a voluntary admission as he presents from behavioral health counselor's office. His PCR COVID is positive. He is asymptomatic with it. At this point in time, his mother would like to take him home until he has recovered from his COVID, although he is asymptomatic. According to current CDC guidelines if he is asymptomatic he should self quarantine for 5 days. She will call [facility] to see if they will take him after this quarantine or if he requires a negative rapid test before voluntary admission. He states he needs something for anxiety. He was given a prescription for Vistaril 25 mg to take 3 times a day as needed for anxiety. I feel he can be discharged safely home with follow-up. Return instructions to the emergency department were reviewed. Disposition is discharged home in stable condition. Lab Data Labs: Laboratory Results - last 24 hr 10/22/21 10/22/21 10/22/21 16:50 16:50 16:50 WBC 5.9 RBC 5.44 Hgb 17.3 H Hct 51.6 MCV 94.9 H MCH 31.8 MCHC 33.5 RDW Std Deviation 42.8 RDW Coeff of Reena 12.3 Plt Count 197 MPV 11.1 Immature Gran % (Auto) 0.300 Neut % (Auto) 67.9 Lymph % (Auto) 17.5 L [place] % (Auto) 12.3 H Eos % (Auto) 1.2 Baso % (Auto) 0.8 Absolute Neuts (auto) 4.0 Absolute Lymphs (auto) 1.04 Nucleated RBC % 0 Sodium 141 Potassium 3.6 Chloride 107 Carbon Dioxide 25.0 Anion Gap 9 BUN 8 Creatinine 0.94 Estim Creat Clear Calc 147.45 Est GFR (MDRD) Af Amer 122 Est GFR (MDRD) Non-Af 101 BUN/Creatinine Ratio 8.5 L Glucose 132 H Calcium 9.1 Total Bilirubin 0.60 AST 48 H ALT 83 H Alkaline Phosphatase 65 Total Protein 7.4 Albumin 4.0 Globulin 3.4 Albumin/Globulin Ratio 1.2 Urine Opiates Screen Urine Methadone Screen Ur Barbiturates Screen Ur Phencyclidine Scrn Ur Amphetamines Screen U Methamphetamin-MDMA U Benzodiazepines Scrn Urine Cocaine Screen U Cannabinoids Screen Ur Drug Screen Comment Ethyl Alcohol < 3.0 COVID-19 ([place]) 10/22/21 10/22/21 17:30 19:05 WBC RBC Hgb Hct MCV MCH MCHC RDW Std Deviation RDW Coeff of Reena Plt Count MPV Immature Gran % (Auto) Neut % (Auto) Lymph % (Auto) [place] % (Auto) Eos % (Auto) Baso % (Auto) Absolute Neuts (auto) Absolute Lymphs (auto) Nucleated RBC % Sodium Potassium Chloride Carbon Dioxide Anion Gap BUN Creatinine Estim Creat Clear Calc Est GFR (MDRD) Af Amer Est GFR (MDRD) Non-Af BUN/Creatinine Ratio Glucose Calcium Total Bilirubin AST ALT Alkaline Phosphatase Total Protein Albumin Globulin Albumin/Globulin Ratio Urine Opiates Screen NEGATIVE Urine Methadone Screen NEGATIVE Ur Barbiturates Screen NEGATIVE Ur Phencyclidine Scrn NEGATIVE Ur Amphetamines Screen NEGATIVE U Methamphetamin-MDMA NEGATIVE U Benzodiazepines Scrn NEGATIVE Urine Cocaine Screen NEGATIVE U Cannabinoids Screen POSITIVE H Ur Drug Screen Comment Ethyl Alcohol COVID-19 ([place]) Detected Discharge Plan Triage Chief Complaint: Mental Health ED Provider: Sukhi Urbano Dx/Rx/DC Orders Clinical Impression: Anxiety, Bipolar I disorder with linda Instructions: Treating Anxiety Disorders ..., ED Bipolar Disorder Prescriptions: New hydroxyzine pamoate [Vistaril] 25 mg capsule 25 mg PO TID PRN (Reason: anxiety) Qty: 20 RF: 0 No Action multivitamin Tablet 1 tab PO DAILY RF: 0 amlodipine 2.5 mg tablet 2.5 mg PO DAILY Qty: 30 RF: 11 fluoxetine 20 MG capsule 20 mg PO DAILY RF: 0 pantoprazole 40 MG tablet,delayed release (DR/EC) 40 mg PO DAILY Qty: 30 RF: 0 Primary Care Provider: De Carroll Referrals: De Carroll MD [Primary Care Provider] -
[2021-10-22 17:28] LABS: ALB/GLOB Ratio 1.2 RATIO (0.9-2.4); AST(SGOT) 48 U/L (15-37); Alanine Aminotransfer ALT/SGPT 83 U/L (16-61); Alkaline Phosphatase 65 U/L (45-117); Anion Gap 9 (5-15); BUN 8 mg/dL (7-18); BUN/Creat Ratio 8.5 RATIO (10-20); Calcium,Total 9.1 mg/dL (8.5-10.1); Chloride 107 mmol/L (98-107); Creatinine, Serum 0.94 mg/dL (0.70-1.30); EST Glomerular Filtration Rate 101 mL/min (>60); Est Glom Filt Rate - Afr Amer 122 mL/min (>60); Estimated Creatinine Clearance 147.45 ml/min; Globulin 3.4 g/dL (2.2-4.2); Glucose 132 mg/dL (74-106); Potassium 3.6 mmol/L (3.5-5.1); Protein, Total 7.4 g/dL (6.4-8.2); Sodium Level 141 mmol/L (136-145)
[2021-10-22 18:56] LABS: Amphetamine Urine VISTA NEGATIVE (<1000 ng/mL); Barbiturate Urine VISTA NEGATIVE (< 200 ng/mL); Benzodiazepine Urine VISTA NEGATIVE (< 200 ng/mL); Cocaine Urine VISTA NEGATIVE (< 300 ng/mL); Ecstacy Urine VISTA NEGATIVE (< 500 ng/mL); Methadone Urine VISTA NEGATIVE (< 300 ng/mL); PCP Urine VISTA NEGATIVE (< 25 ng/mL); THC Urine VISTA POSITIVE (< 50 ng/mL); Vista UDS pH Range 7
--- NOTE | 2021-10-22 19:00 | CM.ED ---
SOCIAL WORK Patient's rapid COVID-19 test came back positive. Discussed with Dr. Urbano, order placed for PCR. Patient and patient's brother updated. Patient anxious in room and requesting something for anxiety. Brother states if PCR positive family requests to take patient home as they are only wanting patient at [facility]. Dr. Urbano updated. Gloria Yu, MA[employer]NA[employer], [employer]
[2021-10-22 19:05] LABS: Alcohol, Blood (Medical)-Serum < 3.0 mg/dL
[2021-10-22 19:09] VITALS: BP 138/60; PULSE 88; RESP 14; O2SAT 97
[2021-10-22] MEDS: LORazepam 1 MG Tablet PO (19:26)
[2021-10-22 21:00] VITALS: BP 128/72; PULSE 67; RESP 14; TEMP 37; O2SAT 97
[2021-10-22 23:06] VITALS: RESP 18
== END 2021-10-22 23:34 | disposition home or self-care (01) ==
PROVIDERS: Emergency Provider Emergency Medicine; PCP Family Medicine; Visit Provider Emergency Medicine
DX: F31.2 Bipolar disorder, current episode manic severe with psychotic features (principal); F41.9 Anxiety disorder, unspecified; U07.1 COVID-19; I10 Essential (primary) hypertension; Z79.899 Other long term (current) drug therapy
CPT/HCPCS: G0480; U0003; 80053; 80307; 82077; 85025; 87426; 87635; 99283; U0005